=== PATIENT | female | born 1965 | race Caucasian/White ===

== ENCOUNTER 2019-09-23 08:07 | Emergency (ER) | payer OTHER ==
[~2019-09-23] VITALS: Ht 160 cm; Wt 72.0 kg
[2019-09-23] MEDS ORDERED: DIVA-75 MT (09:00)
[2019-09-23] MEDS ORDERED: CLON-457 PO (09:05)
[2019-09-23] MEDS ORDERED: RISP3TAB PO (09:07)
[2019-09-23] MEDS ORDERED: QUET300T19 PO (09:07)
[2019-09-23] MEDS ORDERED: SERT50TA12 PO (09:09)
[2019-09-23] MEDS ORDERED: TRAZ-252 PO (09:09)
[2019-09-23] MEDS ORDERED: HYDR50SY PO (09:10)
[2019-09-23] MEDS ORDERED: NICO-645 TP (09:11)
[2019-09-23 09:34] LABS: BASOPHILS % 0.4 % (0.0-2.0); HEMATOCRIT. 38.7 % (36.0-48.0); HEMOGLOBIN. 13.4 g/dL (12.0-16.0); LYMPHOCYTES % 12.3 % (20.0-50.0); MEAN CORPUSCULAR HEMOGLOBIN 30.8 pg (28.0-32.0); MEAN CORPUSCULAR VOLUME 88.7 fL (81.0-99.0); MEAN PLATELET VOLUME 7.4 fl (7.4-10.4); MONOCYTES % 10.7 % (2.0-8.0); NEUTROPHILS % 75.6 % (40.0-76.0); PLATELET 256 x1000/uL (130-400); RED BLOOD CELL COUNT 4.36 mill/uL (4.2-5.4); RED CELL DISTRIBUTION WIDTH 14.9 % (11.6-14.6)
[2019-09-23 09:39] LABS: *AMPHETAMINES SCREEN URINE NEGATIVE (NEGATIVE); *BARBITURATES SCREEN URINE NEGATIVE (NEGATIVE); *BENZODIAZEPINES SCREEN URINE NEGATIVE (NEGATIVE); *COCAINE SCREEN URINE NEGATIVE (NEGATIVE)
[2019-09-23 09:40] LABS: CANNABINOID URINE SCREEN NEGATIVE (NEGATIVE); METHADONE URINE SCREEN NEGATIVE (NEGATIVE); OPIATES URINE SCREEN NEGATIVE (NEGATIVE); PHENCYCLIDINE URINE SCREEN NEGATIVE (NEGATIVE)
[2019-09-23 09:42] LABS: CHLORIDE 103 mEq/L (98-107)
[2019-09-23 09:46] LABS: ETHANOL BLOOD < 10 mg/dL
[2019-09-24 12:00] VITALS: BP 129/76
== END 2019-09-24 12:20 | disposition home or self-care (01) ==
LOC: ER 10:54
DX: J02.9 Acute pharyngitis, unspecified (principal); R45.851 Suicidal ideations; T43.641A Poisoning by ecstasy, accidental (unintentional), initial encounter; Y92.89 Other specified places as the place of occurrence of the external cause; F17.290 Nicotine dependence, other tobacco product, uncomplicated; Z79.899 Other long term (current) drug therapy; Z88.0 Allergy status to penicillin
CPT/HCPCS: 36415; 80053; 80305; 80307; 80320; 80329; 81025; 82140; 84443; 85025; 93005; 99285; 99406; G0480